=== PATIENT | female | born 1950 | race Caucasian/White ===

== ENCOUNTER → 2019-08-15 | Outpatient (CLI) | payer MEDICARE, OTHER ==
[2019-08-15 10:51] VITALS: BP 175/94; PULSE 75; RESP 18; TEMP 98.3; BMI 21.9
--- NOTE | 2019-08-15 11:12 | P.GSHP ---
History of Present Illness H&P Date: 08/15/19 Chief Complaint: breast mass Dick is a 68-year-old white female who presents for breast examination. She states she noted a lump in her left breast approximately 1 month ago. It is tender to palpation. She has no other masses or lumps in her breasts. She has no history of any infection or trauma in her breast. She had a questionable needle biopsy of one of her breast in the remote past but is unsure which one. She has not had a mammogram for approximately 3 years. The patient drinks 2 cups of caffeinated beverage per morning. She does not smoke and is not exposed to secondhand smoke and eats chocolate only rarely. Family History: 1. patient: melanoma 2. father: skin cancer Hormonal History: menarche: 15 , breast fed: no, age at first 22 menopause: 47 BCP: 8 years hormones: none Surgical history: 1. 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 Parotid resection Medical History: none Social history: Smoking: Negative Alcohol: Negative Drugs: Negative - Constitutional Constitutional: Denies chills, Denies fever - EENT Eyes: denies blurred vision, denies pain Ears: deny: decreased hearing, tinnitus Ears, nose, mouth and throat: Denies headache, Denies sore throat - Breasts Breasts: bilateral: as per HPI - Cardiovascular Cardiovascular: Denies chest pain, Denies shortness of breath - Respiratory Respiratory: Denies cough, Denies 7 - Gastrointestinal Gastrointestinal: Denies abdominal pain, Denies diarrhea, Denies nausea, Denies vomiting - Genitourinary (Female) Genitourinary: Denies dysuria, Denies hematuria - Menstruation Menstruation: Reports postmenopausal - Musculoskeletal Musculoskeletal: Denies myalgias - Integumentary Comment: melanoma right arm - Neurological Neurological: Denies numbness, Denies weakness - Psychiatric Psychiatric: Denies anxiety, Denies depression - Endocrine Endocrine: Denies fatigue, Denies weight change - Hematologic/Lymphatic Comment: none - Allergic/Immunologic Allergic/Immunologic: Reports seasonal allergies Past Medical History History of Any Multi-Drug Resistant Organisms: None Reported Smoking Status: Never smoker Surgical - Exam Vital Signs Temp Pulse Resp BP Pulse Ox 98.3 F 75 18 175/94 100 08/15/19 10:48 08/15/19 10:48 08/15/19 10:48 08/15/19 10:48 08/15/19 10:48 BMI 22 - General well developed, well nourished, no distress - Eyes normal ocular movement - ENT no hearing loss, no congestion - Neck no masses, trachea midline - Respiratory normal respiratory effort, clear to auscultation - Cardiovascular Rhythm: regular Heart Sounds: normal: S1, S2 - Abdomen Abdomen: soft, non tender, no guarding, no rigid, no rebound - Integumentary well healed scar right arm Examination of the integument revealed most likely actinic keratosis over the chest Particular attention to the right arm for melanoma had been removed was paid and no evidence of recurrent melanoma No evidence of lesions of concern over the back - Neurologic no disoriented, no combative - Musculoskeletal normal gait, normal posture - Psychiatric oriented to time, oriented to person, oriented to place, speech is normal, memory intact breast exam: Right breast: Multi-positional exam fibrocystic changes, no dominant masses or nodules of concern Right axilla approximately 1 cm lymph node palpable freely mobile Left breast: Multi-positional exam fibrocystic changes, approximately 1-2 cm firm mass at 1 to 2 o'clock position in periareolar region Left axilla: No adenopathy of concern Assessment and Plan Assessment: Impression: 1. Left breast Mass. 2. Family history of skin cancer 3. Personal history of melanoma 4. Right axillary adenopathy 5. Fibrocystic breast changes 6. Probable actinic keratosis over the chest Plan: 1. Bilateral mammogram 2. Ultrasound of the right axilla/ultrasound of left breast to palpable abnormality 3. Core biopsy of palpable abnormality may be radiographically directed depending on the studies 4. Medical management of medical conditions 5. Strongly recommend a plan with repairer recreational vehicle
--- NOTE | 2019-08-15 13:52 | MM ---
Reason for exam: clinical finding. Last mammogram was performed 3 years and 7 months ago. History: Patient is postmenopausal and has history of other cancer at age 55. Family history of breast cancer in maternal grandmother. Benign core biopsy of the left breast, 2000. Took hormonal contraceptives beginning at age 23. Physical Findings: Breast exam performed by Dr. Thorpe. MG 3D Diag Mammo W/Cad AMBER Bilateral CC and MLO view(s) were taken. Prior study comparison: January 14, 2016, bilateral MG 3d diag mammo w/cad AMBER. January 12, 2015, bilateral MG screening mammo w CAD. The breast tissue is heterogeneously dense. This may lower the sensitivity of mammography. Deep to the palpable marker there is a spiculated mass measuring 6-7mm. Benign appearing bilateral calcifications. Post surgical change in the right axilla. These results were verbally communicated with the patient and result sheet given to the patient on 08/15/19. ASSESSMENT: Incomplete: need additional imaging evaluation, BI-RAD 0 RECOMMENDATION: Ultrasound of the left breast. (palpable)
--- NOTE | 2019-08-15 13:59 | USB ---
Reason for exam: additional evaluation requested from abnormal screening. History: Patient is postmenopausal and has history of other cancer at age 55. Family history of breast cancer in maternal grandmother. Benign core biopsy of the left breast, 2000. Took hormonal contraceptives beginning at age 23. US Breast Limited LT Right breast axilla is negative. Left limited breast ultrasound including focal area of concern, retroareolar and axilla demonstrates a 1.1 x 0.6 x 0.9cm solid, highly suspicious lesion at 1 o'clock for which a biopsy is recommended and a axilla node, no cortical thickening, maintains a fatty hilum. These results were verbally communicated with the patient and result sheet given to the patient on 08/15/19. ASSESSMENT: Highly suggestive of malignancy, BI-RAD 5 RECOMMENDATION: Ultrasound core biopsy of the left breast. Called Dr. Thorpe's office with mammographic findings. Biopsy scheduled for 08/23/19 at 9:30. PRELIMINARY REPORT CALLED AND FAXED TO DR. THORPE ON 08/15/19.
== END ==
LOC: WWCWWP 09:45
PROVIDERS: ATTEND Surgery
DX: N63.20 Unspecified lump in the left breast, unspecified quadrant (principal)
CPT/HCPCS: 77066; 76642 ×2; G0279; 77062

== ENCOUNTER → 2019-08-23 | Day surgery (SDC) | payer MEDICARE, OTHER ==
[2019-08-23 08:56] VITALS: RESP 16; BMI 21.9
[2019-08-23 10:26] VITALS: BP 154/74; PULSE 71; TEMP 98
--- NOTE | 2019-08-23 10:34 | USB ---
EXAMINATION TYPE: US biopsy breast VAD LT, MG diagnostic mammo LT wo CAD DATE OF EXAM: 08/23/2019 CLINICAL HISTORY: R92.8 ABN MAMMO. Abnormal ultrasound. Palpable abnormality. TECHNIQUE: Ultrasound guided core biopsy of left breast with clip placement and follow up mammogram. COMPARISON: Left breast ultrasound and mammogram 8 days ago and older studies. FINDINGS: The procedure of ultrasound guided core biopsy was explained to the patient. Benefits, alternatives, and risks were discussed. An informed consent was then obtained. The patient was placed in supine positioning for imaging and for the procedure. Preprocedure ultrasound redemonstrates 1.2 x 0.7 cm irregular heterogeneous hypoechoic lesion 1:00 position left breast. The overlying skin was prepped and draped in usual sterile fashion. Lidocaine is used as anesthetic into the skin and subcutaneous tissue. Lidocaine with epinephrine is used as anesthetic into the deeper tissue up to area of concern in the left breast. Under ultrasound guidance, a 12-gauge vacuum assisted biopsy gun device was used to obtain 3 core samples. Following this, a biopsy clip was left in lesion. The patient tolerated the procedure well without any immediate complication. The patient was kept in the radiology department for short stay after the procedure and then discharged home in stable condition. Postprocedure mammogram shows successful deployment of clip correlating with area of concern on original 3-D mammograms. IMPRESSION: Successful, uncomplicated ultrasound guided core biopsy of area of concern in the left breast, full pathology results to follow. High index of suspicion noted at time of procedure. Pathology Results: Malignant LEFT BREAST, ULTRASOUND GUIDED CORE BIOPSY: Invasive mammary carcinoma, mixed ductal and lobular patterns, Grade 1 (Erika). See note. Tumor cells positive for Estrogen Receptor (greater than 90% strong nuclear staining by immunohistochemistry). Tumor cells weakly positive for Progesterone Receptor (2-5% focal moderate strong nuclear staining by immunohistochemistry). Tumor cells negative for HER2/Parisa (0+ membrane staining by immunohistochemistry). Tumor cells are strongly positive for pancytokeratin AE1/3 and E-Cadherin. Recommendation Surgical consult of the left breast. MTDD
== END | disposition home or self-care (01) ==
LOC: RADUSWWP 08:29
PROVIDERS: ATTEND Surgery
DX: C50.412 Malignant neoplasm of upper-outer quadrant of left female breast (principal); Z17.0 Estrogen receptor positive status [ER+]
CPT/HCPCS: 77065; 19083; A4648; J2001; 88305

== ENCOUNTER → 2019-09-04 | Outpatient (CLI) | payer MEDICARE, OTHER ==
[2019-09-04 12:43] VITALS: BP 145/87; PULSE 83; RESP 16; TEMP 98.1; BMI 21.9
--- NOTE | 2019-09-04 14:08 | P.PN ---
Subjective Progress Note Date: 09/04/19 Principal diagnosis: [id number]+HER2-G1 Stage 1A left breast cancer Dick is a 69-year-old white female status post left breast ultrasound-guided core biopsy on [id number]. The pathology revealed a grade 1 invasive mammary carcinoma mixed ductal and lobular parents. This is ER/HI positive and HER-2 negative. The patient does not have any complaints after the procedure. Objective - Vital Signs Vital signs: Vital Signs Temp 98.1 F 09/04/19 12:28 Pulse 83 09/04/19 12:28 Resp 16 09/04/19 12:28 BP 145/87 09/04/19 12:28 Pulse Ox 99 09/04/19 12:28 Intake & Output 09/03/19 09/04/19 09/04/19 18:59 06:59 18:59 Weight 58.06 kg - Constitutional General appearance: Present: average body habitus - EENT Eyes: Present: EOMI ENT: Present: hearing grossly normal - Neck Neck: Present: normal ROM - Respiratory Respiratory: bilateral: CTA - Cardiovascular Rhythm: regular Heart sounds: normal: S1, S2 - Integumentary Integumentary Comment(s): Mild ecchymosis left breast upper outer quadrant area biopsy site No evidence of any infection at biopsy site Integumentary: Present: normal turgor - Musculoskeletal Musculoskeletal: Present: gait normal - Psychiatric Psychiatric: Present: A&O x's 3, appropriate affect, intact judgment & insight - Additional findings Additional findings: Left breast, Bra size 36 B breast from prior exam no dominant masses or nodules of concern Grade 2/3 ptosis Lesion left breast nodule upper outer quadrant area approximately one and half centimeters in size Axilla: No adenopathy of concern at this time recent ultrasound of the right axilla was negative nontender 1719 Left axilla: No adenopathy of concern Right breast: No dominant masses or nodules of concern Assessment and Plan Assessment: Impression: 1. Left breast stage IA invasive ductal/lobular carcinoma 2. Radiographic dense breast 3. Patient does not have a primary care doctor at this time we will schedule for preoperative clearance Plan: MRI bilateral breasts secondary to dense breast and questionable lobular component of cancer 2. If MRI does not show multifocal disease with plan on needle localization excisional biopsy sentinel node biopsy possible tissue transfer 3. pre-op clearance I discussed risks and benefits of the surgical procedure which would range from mastectomy plus or minus reconstruction to the onco-plastic lumpectomy. Patient and her and friend understand they also understand sentinel node biopsy possible axillary node dissection. In benefits of the procedures have been discussed with the patient. Risks include bleeding infection reaction to the anesthetic. Risks also include possible positive margin which would necessitate reexcision. Face time 45 minutes explaining risk and benefits and treatment planning.
--- NOTE | 2019-10-01 15:38 | P.PN ---
Subjective Progress Note Date: 10/01/19 Principal diagnosis: [id number]+HER2-G1 Stage 1A left breast cancer She had a bilateral mammogram [id number] Dick is a 69-year-old white female status post left breast ultrasound-guided core biopsy on [id number]. The pathology revealed a grade 1 invasive mammary carcinoma mixed ductal and lobular parents. This is ER/AK positive and HER-2 negative. The patient does not have any complaints after the procedure. She was initially seen after finding a lump in her breast approximately a month earlier. The lump was tender to palpation. She had no other masses or lumps in her breasts. She had no history of infection or trauma to her breast. She had a questionable needle biopsy of one of her breasts in the remote past but was unsure of which one. She underwent a bilateral mammogram and tender 1718. A spiculated mass was identified. Ultrasound was recommended. Left breast ultrasound revealed a 1.1 x 0.9 cm solid highly suspicious lesion. Core biopsy was positive for invasive mammary carcinoma. An MRI was performed on [id number]. The MRI revealed a solitary 1.1 cm left breast mass at the 1 o'clock position. No multifocal cancer was seen. No lesion on the right side was identified. Family history: 1. Patient: Melanoma 2. Father: Skin cancer Hormonal history: Menarche: 15 , press-fit: No, age of first is 22 Menopause: 47 Preoperative control pills: 8 years Hormones: Negative Surgical history: 1. 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 Parotid resection Medical history: Negative Social history: Smoking: Negative Alcohol: Negative Review of systems: Constitutional: Denies chills, denies fever HEENT: Negative Breasts: As per HPI Cardiovascular: Negative Mesentery: Negative GI: Negative : Negative Postmenopausal Musculoskeletal: Negative Integument: Status post melanoma right arm Neurologic: Negative Psychiatric: Negative Objective - Vital Signs Vital signs: Vital Signs Temp 98.1 F 09/04/19 12:28 Pulse 83 09/04/19 12:28 Resp 16 09/04/19 12:28 BP 145/87 09/04/19 12:28 Pulse Ox 99 09/04/19 12:28 - Exam BMI 22 - Constitutional General appearance: Present: no acute distress - EENT Eyes: Present: EOMI ENT: Present: hearing grossly normal - Neck Neck: Present: normal ROM - Respiratory Respiratory: bilateral: CTA - Cardiovascular Rhythm: regular Heart sounds: normal: S1, S2 - Gastrointestinal General gastrointestinal: Present: soft - Integumentary Integumentary Comment(s): Well-healed scar right arm Integumentary: Present: normal turgor - Musculoskeletal Musculoskeletal: Present: gait normal - Psychiatric Psychiatric: Present: A&O x's 3, appropriate affect, intact judgment & insight - Additional findings Additional findings: Breast exam: Right breast: Multi-positional exam fibrocystic changes predominantly mass or nodules of concern Right axilla: Proximal 1 cm lymph node palpable freely mobile Ultrasound of the axilla did not reveal any lesions of concern Left breast: Multi-positional exam fibrocystic changes, approximately 1-2 cm firm mass in 1 to 2 o'clock position in periareolar region Left axilla: No adenopathy of concern Assessment and Plan Assessment: Impression: 1. Left breast stage IA invasive ductal/lobular carcinoma 2. Radiographic dense breast 3. MRI bilateral breasts secondary to dense breast and questionable lobular component of cancer/performed on 09-13-19, findings revealed a solitary 1.1 cm left breast mass at 1:00, no multifocal cancer, no lesion in the right breast Plan: 1. needle localization left breast cancer; lumpectomy sentinel node biopsy; possible axillary dissection, possible tissue transfer I discussed risks and benefits of the surgical procedure of onco-plastic lumpectomy. Patient and her and friend understand they also understand sentinel node biopsy possible axillary node dissection. The risk vs benefits of the procedures have been discussed with the patient. Risks include bleeding infection reaction to the anesthetic. Risks also include possible positive margin which would necessitate reexcision. We also discussed possible mastectomy plus or minus reconstruction and the patient has opted for a lumpectomy.
== END | disposition home or self-care (01) ==
LOC: WWCWWP 12:25
PROVIDERS: ATTEND Surgery
DX: Z53.9 Procedure and treatment not carried out, unspecified reason (principal)

== ENCOUNTER → 2019-09-13 | Outpatient (CLI) | payer MEDICARE, OTHER ==
--- NOTE | 2019-09-13 15:52 | BMR ---
EXAMINATION TYPE: MR breast BILAT wo/w con DATE OF EXAM: 09/13/2019 COMPARISON: Bilateral diagnostic mammogram dated 08/15/2019, left breast ultrasound dated 08/15/2019, and left breast biopsy dated 08/23/2019 HISTORY: malignant neoplasm breast TECHNIQUE: A series of fat and water weighted images in the long and short axis views of both breasts are obtained in conjunction with dynamic contrast MRI with subtraction technique. The patient was i njected with 6 mL intravenous Gadavist gadolinium contrast. Three-dimensional and additional postpr ocessing imaging is created on independent workstation and reviewed during official interpretation of this study. FINDINGS: The breasts are composed of heterogenous fibroglandular tissue and demonstrate mild symmetric backgro und parenchymal enhancement. Corresponding to the biopsy-proven mixed ductal and lobular pattern invasive mammary carcinoma at the 1:00 position in the left breast there is a 1.0 x 1.0 cm mass located approximately 3.7 cm from the nipple. Susceptibility artifact is seen within this mass denoting the biopsy marker. Left axillary ly mph nodes appear morphologically normal. No suspicious internal mammary, intramammary, or axillary ad enopathy seen bilaterally. No suspicious enhancing masses nor nonmass enhancement in the right breast . Scattered subcentimeter probable hepatic cysts are incidentally noted. IMPRESSION: BI-RADS 6. Biopsy-proven left breast carcinoma. There is a solitary 1.1 x 1.1 cm left breast mass at the 1:00 position, 3.7 cm from the nipple containing marker denoting the biopsy carcinoma. No multifo agustín carcinoma nor is lesion on the right.
== END ==
LOC: RADMRIMAIN 06:09
PROVIDERS: ATTEND Surgery
DX: C50.912 Malignant neoplasm of unspecified site of left female breast (principal)
CPT/HCPCS: C8937; C8908; A9585; 77049

== ENCOUNTER 2019-10-02 07:31 | Day surgery (SDC) | payer MEDICARE, OTHER ==
[2019-09-30 12:52] VITALS: BMI 21.2
[~2019-10-02 07:31] MED LIST: DEXAMETHASONE SOD PHOSPHATE 10 MG/ML 1 ML VIAL IV ONE; HEPARIN SODIUM,PORCINE 5,000 UNIT/ML 1 ML VIAL SQ ONE; HYDROmorphone 0.5 MG/0.5 ML SYRINGE IVP PRN; LACTATED RINGERS 1,000 ML IV SCH; LIDOCAINE 1% 20 ML VIAL (10MG/ML) FOR IV START INTRADERMA PRN; MIDAZOLAM 2 MG/2 ML VIAL IV PRN; ONDANSETRON 4 MG/2 ML VIAL IVP ONE; Pre Op ABX Message 1 EACH MISC MISCELLANE ONE; SCOPOLAMINE 1.5MG/72HR PATCH TRANSDERM ONE
[2019-10-02] MEDS ORDERED: ALPRAZolam 0.25 MG TAB PO ONE (08:07)
[2019-10-02] MEDS ORDERED: LIDOCAINE 1% INJ 10MG/ML (20 ML MDV) SQ ONE (08:54)
--- NOTE | 2019-10-02 09:35 | NM ---
EXAMINATION TYPE: NM sentinel node injection DATE OF EXAM: 10/02/2019 COMPARISON: MRI breast dated 09/11/2019 HISTORY: Biopsy-proven left breast cancer TECHNIQUE AND FINDINGS: The procedure of sentinel lymph node injection was explained to the patient. The benefits, alternatives, and risks were discussed. An informed consent was then obtained. Overlying skin is cleaned with sterile alcohol. Following this, 528 uCi Tc99m Tilmanocept was inject ed in the upper outer aspect of the left nipple intradermally. The patient tolerated the procedure well without any immediate complication. The patient was kept in the radiology department for short stay after the procedure and then taken to surgery for surgical p rocedure what is presumed intraoperative gamma probe will be used for sentinel lymph node detection. IMPRESSION: Left breast radiotracer injection for sentinel node localization as above.
[2019-10-02] MEDS ORDERED: LIDOCAINE (PF) 10 MG/ML 2 ML VIAL SQ ONE (09:41)
[2019-10-02] MEDS ORDERED: fentaNYL (PF) 50 MCG/ML 2 ML AMP ONE (09:50)
[2019-10-02] MEDS ORDERED: PHENYLEPHRINE-0.9% NACL SYG 1 MG/10 ML SYRINGE ONE (09:50)
[2019-10-02] MEDS ORDERED: MIDAZOLAM 2 MG/2 ML VIAL ONE (09:50)
[2019-10-02] MEDS ORDERED: PROPOFOL 10 MG/ML 20 ML VIAL IV ONE (09:50)
[2019-10-02] MEDS ORDERED: ONDANSETRON 4 MG/2 ML VIAL ONE (09:50)
[2019-10-02] MEDS ORDERED: LACTATED RINGERS 1,000 ML IV ONE (11:49)
--- NOTE | 2019-10-02 12:45 | MM ---
EXAMINATION TYPE: MG pre op needle loc LT, MG surgical specimen LT DATE OF EXAM: 10/02/2019 COMPARISON: MRI of the breasts dated 09/03/2019 CLINICAL HISTORY: Biopsy-proven left breast carcinoma TECHNIQUE: Needle localization with wire placement and surgical excision of area of concern in the left breast. FINDINGS: The procedure of needle localization with wire placement and than surgical excision was explained to the patient. Benefits, alternatives, and risks were discussed. An informed consent was then obtained. Preprocedural timeout was performed. The shortest pathway for procedure was chosen. Shortest pathway was lateral to medial approach. The overlying skin was prepped and draped in usual sterile fashion. Lidocaine buffered with bicarbonate was used as anesthetic into the skin and subcutaneous tissue up to the level of area of concern. A 5 cm needle was used. It was placed via a lateral to medial approach under mammographic guidance. Subsequent 90 degrees mammogram show the needle to be in satisfactory position relative to the targeted area. At this point, wire was placed and the needle was withdrawn. The wire was fixed to patient's skin. Images were marked for surgeon. The patient tolerated the procedure well without any immediate complication. The patient was kept in the radiology department for short stay after the procedure and then taken to surgery for surgical excision. Targeted biopsy marker and wire are identified in specimen mammogram. The patient was kept in hospital for short stay after the procedure and then discharged home in stable condition. IMPRESSION: Successful, uncomplicated needle localization with wire placement and surgical excision of a targeted biopsy marker denoting biopsy-proven left breast carcinoma (invasive ductal with mixed features and lobular pattern) in the left breast, full pathology results to follow. Pathology Results: Malignant A. LEFT BREAST SENTINEL LYMPH NODE, BIOPSY: One lymph node negative for metastatic adenocarcinoma as seen on H+E as well as appropriately controlled immunohistochemical studies for VIDA and cytokeratin 7. B. ADDITIONAL AXILLARY TISSUE, EXCISION: Two lymph nodes negative for metastatic adenocarcinoma. C. NEW EXTERNAL MARGIN, LATERAL EDGE, EXCISION: Negative for adenocarcinoma, mineralizations are identified in benign dense breast parenchyma. D. DE-EPITHELIALIZED SKIN, EXCISION: Unremarkable skin, negative for carcinoma. E. LEFT BREAST, LUMPECTOMY: Invasive mammary carcinoma, [place] Grade 2 with areas consistent with infiltrating lobular pattern measuring 9 x 9 x 8 mm in greatest dimension, completely excised extending to within 2.5 mm of the blue/ black inked, superior anterior margin of resection. Tumor is also approximately 2.5 mm away from the posterior purple inked margin of resection. See note. Recommendation Surgical consult of the left breast. Continued surgical management. MTDD
--- NOTE | 2019-10-02 13:29 | P.OP ---
Date of Procedure: 10/02/19 Preoperative Diagnosis: Left breast cancer Postoperative Diagnosis: Same Procedure(s) Performed: pre-operative marking the patient for procedure. [place] node biopsy, lumpectomy via donut mastopexy, tissue rearrangement The patient was evaluated in the preoperative holding area. She was noted to have a grade 3 ptosis bilaeral. It was discussed with the patient that following the procedure she would have asymmetry of the breasts. Skin markings were placed to denote the meridian of the breast and the new location of the nipple areolar complex. A circumferential marking was placed around the nipple areola complex with an eccentric twin hills placed distal to this. Contralateral symmetry procedure is delayed until after the patient receives radiation therapy and this will be matched to the final appearance of the left breast. Anesthesia: JUAN R Surgeon: Luisa Thorpe Estimated Blood Loss (ml): 20 IV fluids (ml): 1,000 Pathology: other ([place] lymph node, breast tissue) Condition: stable Disposition: same day Indications for Procedure: Biopsy-proven left breast cancer Operative Findings: Ptotic breast, palpable left breast mass Description of Procedure: The patient was evaluated in the preoperative holding area. Preoperatively she underwent needle localization of the area of concern in the left breast. She additionally had injection of lymphatic kindly sentinel node biopsy. She was noted to have a grade 3 ptosis bilaeral. It was discussed with the patient that following the procedure she would have asymmetry of the breasts. Skin markings were placed to denote the meridian of the breast and the new location of the nipple areolar complex. A circumferential marking was placed around the nipple areola complex with an eccentric twin hills placed distal to this. Contralateral symmetry procedure is delayed until after the patient receives radiation therapy and this will be matched to the final appearance of the left breast. The patient was brought to the operating room and following induction of general anesthesia the neoprobe was used to interrogate the axilla. An area of increased radioactivity was identified and therefore methylene blue was not injected. The breast and the left axilla and upper arm were prepped and draped in a sterile fashion. The axilla was approached initially. Using the neoprobe the area of greatest radioactivity was identified. An incision was made in this area. A palpable lymph node was identified which was excised. This was not radioactive. Radioactivity was noted to be deep within the axilla. One of the intercostal brachial vessels was ligated and divided to reach the no. The node was grasped using an Allis clamp. Using the Harmonic scalpel this area was resected. A 10 second count on the node was performed which is approximately 1400. The background 10 second count was noted to be 4. The axilla was evaluated for hemostasis. We were assured this was attained the wound was well irrigated. The deep tissues were closed using 3-0 Vicryl suture. The skin was closed using 4-0 Monocryl. The patient tolerated this portion of the procedure in stable condition. The specimen was not felt to be clinically suspicious and it was sent for permanent section evaluation. The area of the breast was then approached. The periareolar area was marked using a 42 cm Saqina cutter. An eccentric twin hills was placed outside this area using a measuring device. The distance was approximately 2-1/2 cm at the 12 o'clock position. This marked the boundary of the new areolar complex. An incision was made and the skin was scored. A second incision was made around the nipple areolar complex in an eccentric fashion. The skin within donut was de-epithelialized. A curvilinear incision was made in the de-epithelialized stone adjacent to the planned partial mastectomy. Dissection was then performed in the subcutaneous/anterior mammary fascial plane towards the cancer. Circumferential dissection around the targeted lesion was performed. Posteriorly dissection was carried down to the pectoralis major muscle. The specimen was removed and painted for orientation. Specimen radiograph confirmed the targeted lesion was completely removed. The lateral margin appeared to be close. Additional lateral tissue was obtained and the external surface was painted for orientation. The wound was irrigated. Hemostasis was secured. Titanium clips were placed to [place] the tumor bed. Dissection was performed at the deep layer of the breast along the pectoralis major muscle. Approximately 32 square centimeters of tissue was dissected along the superior plane, and 24 cm of tissue was dissected along the inferior plane to mobilize the glandular breast tissue to allow for repair of the defect from the partial mastectomy. This was a total of 56 square cm of tissue mobilized. The defect was then closed in a [id number] fashion. This allowed for reshaping of the breast mound to repair the defect. The skin was then closed using a 5-0 [place] isela wagon wheel suture. This reapproximated the inner and outer circular incisions at the nipple areolar complex. The nipple area complex was then reapproximated using interrupted 4-0 Monocryl. The skin was closed using a 5-0 nylon suture. All instrument and sponge counts were correct at the end of the case. The patient tolerated the procedure in stable condition.
--- NOTE | 2019-10-02 13:34 | P.DS ---
Providers Attending physician: Luisa Thorpe Primary care physician: Temo Felix Plan - Discharge Summary Discharge Rx Participant: No New Discharge Prescriptions: No Action No Known Home Medications Discharge Medication List No Known Home Medications 08/15/19 [History] Follow up Appointment(s)/Referral(s): Luisa Thorpe MD [STAFF PHYSICIAN] - 1 Week Activity/Diet/Wound Care/Special Instructions: Do not drive until seen by Dr. Juares Keep Nishant wrap on at all times Patient may shower after 48 hours Discharge Disposition: HOME SELF-CARE
--- NOTE | 2019-10-02 13:35 | P.NAPBC ---
NAPBC Queries - NAPBC Queries Was patient's case review presented at [facility] tumor board? If no, comment.: Yes Was patient's pathology reviewed at [facility]? If no, comment.: Yes Was breast conservation surgery offered? If no, comment.: Yes Was sentinel node biopsy offered? If no, comment.: Yes Was diagnosis confirmed by percutaneous core biopsy? If no, comment.: Yes Is patient mastectomy patient?: No Was a preop referral to reconstructive surgeon offered?: Yes Clinical Stage: Stage IA [id number] ER/PA+ Her2-
[2019-10-02 13:44] VITALS: TEMP 97.6
[2019-10-02 13:49] VITALS: RESP 16
[2019-10-02] MEDS ORDERED: HYDROcodone/APAP 5-325MG 1 EACH TAB PO ONE (14:44)
[2019-10-02] MEDS ORDERED: METOPROLOL TARTRATE 5 MG/5 ML VIAL IVP ONE (16:47)
[2019-10-02 17:11] VITALS: PULSE 61
[2019-10-02 17:16] VITALS: BP 166/78
== END 2019-10-02 17:44 | disposition home or self-care (01) ==
LOC: OR 07:31
PROVIDERS: ATTEND Surgery
DX: C50.412 Malignant neoplasm of upper-outer quadrant of left female breast (principal); Z17.0 Estrogen receptor positive status [ER+]; R42 Dizziness and giddiness; Z91.040 Latex allergy status; Z88.5 Allergy status to narcotic agent; Z91.048 Other nonmedicinal substance allergy status; Z85.820 Personal history of malignant melanoma of skin; Z98.890 Other specified postprocedural states; Z82.49 Family history of ischemic heart disease and other diseases of the circulatory system
CPT/HCPCS: 19301; 38525; 93005; 88305; 88342; 88307; 88341; 76098; 19281; 38792; A9520; J2250; J1644; J1100; J2405; J2001; J3010; J2370; J2704; J1170

== ENCOUNTER → 2019-10-11 | Outpatient (CLI) | payer MEDICARE, OTHER ==
[2019-10-11 15:25] VITALS: BP 164/105; PULSE 95; RESP 18; TEMP 97.9
--- NOTE | 2019-10-11 15:45 | P.PN ---
Subjective Progress Note Date: 10/11/19 Principal diagnosis: Stage IA [id number]- left breast cancer Patient is a 69 year old white female status post left breast lumpectomy and SNB on 10-02-19. 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 The margins were negative. The patient is complaining of some pain under her left arm. She states this has decreased since the surgery. Objective - Vital Signs Vital signs: Vital Signs Temp 97.9 F 10/11/19 15:19 Pulse 95 10/11/19 15:19 Resp 18 10/11/19 15:19 BP 164/105 10/11/19 15:19 Pulse Ox 98 10/11/19 15:19 Intake & Output 10/10/19 10/11/19 10/11/19 18:59 06:59 18:59 Weight 54.885 kg - Exam BMI 20.8 - Constitutional General appearance: Present: average body habitus - EENT Eyes: Present: EOMI ENT: Present: hearing grossly normal - Neck Neck: Present: normal ROM - Respiratory Respiratory: bilateral: CTA - Cardiovascular Rhythm: regular Heart sounds: normal: S1, S2 - Gastrointestinal General gastrointestinal: Present: normal bowel sounds, soft - Integumentary Integumentary: Present: normal turgor - Musculoskeletal Musculoskeletal: Present: gait normal - Psychiatric Psychiatric: Present: A&O x's 3, appropriate affect, intact judgment & insight - Additional findings Additional findings: left breast: Incision clean and dry sutures removed Axillary incision clean and dry no evidence of any infection Assessment and Plan Assessment: Impression: 1. stage IA left breast margins negative 2. patient doing well Plan: 1. appointment medical oncology 2. appointment radiation oncology 3. follow up here in three months CC: DR. Felix Time with Patient: Less than 30
== END ==
LOC: WWCWWP 15:13
PROVIDERS: ATTEND Surgery
DX: Z53.9 Procedure and treatment not carried out, unspecified reason (principal)

== ENCOUNTER → 2020-04-09 | Outpatient (CLI) | payer MEDICARE, OTHER ==
[2020-04-09 14:58] VITALS: BP 156/78; PULSE 62; RESP 14; TEMP 98.2
--- NOTE | 2020-04-09 15:30 | P.PN ---
Subjective Progress Note Date: 04/09/20 Principal diagnosis: [id number]; Stage IB let breast cancer Stage IA left breast cancer Dick is a 69-year-old white female status post left breast lumpectomy and sentinel node biopsy on . 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 The margins were negative. The patient does have some intermittent left breast sharp pain which occurs laterally and spreads to the nipple. She does not know what causes this to happen. It is occurring less frequently. She had radiation therapy in [place]. She is starting on anastrozole. The patient does have some asymmetry of the breasts. The right nipple has grade 3 ptosis of the left nipple is She has grade 3 right breast ptosis; in the left breast there is scar tissue with some deviation of the nipple laterally. The patient has anxiety about this secondary to the asymmetry dofference in the and level of the nipples, and complains of difficulty finding clothes to fit correctly. Family History: 1. patient: melanoma 2. father: skin cancer Hormonal History: menarche: 15 , breast fed: no, age at first 22 menopause: 47 BCP: 8 years hormones: none Surgical history: 1. 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 Parotid resection 3. left breast lumpectomy and SNB Medical History: HTN Social history: Smoking: Negative Alcohol: Negative Drugs: Negative - Constitutional Constitutional: Denies chills, Denies fever - EENT Eyes: denies blurred vision, denies pain Ears: deny: decreased hearing, tinnitus Ears, nose, mouth and throat: Denies headache, Denies sore throat - Breasts Breasts: bilateral: as per HPI - Cardiovascular Cardiovascular: Denies chest pain, Denies shortness of breath - Respiratory Respiratory: Denies cough - Gastrointestinal Gastrointestinal: Denies abdominal pain, Denies diarrhea, Denies nausea, Denies vomiting - Genitourinary (Female) Genitourinary: Denies dysuria, Denies hematuria - Menstruation Menstruation: Reports postmenopausal - Musculoskeletal Musculoskeletal: Denies myalgias - Integumentary Comment: melanoma right arm - Neurological Neurological: Denies numbness, Denies weakness - Psychiatric Psychiatric: Denies anxiety, Denies depression - Endocrine Endocrine: Denies fatigue, Denies weight change - Hematologic/Lymphatic Comment: none - Allergic/Immunologic Allergic/Immunologic: Reports seasonal allergies Past Medical History History of Any Multi-Drug Resistant Organisms: None Reported Smoking Status: Never smoke Objective - Vital Signs Vital signs: Intake & Output 04/08/20 04/09/20 04/09/20 18:59 06:59 18:59 Weight 58.06 kg - Exam BMI 22 - Constitutional General appearance: Present: average body habitus - EENT Eyes: Present: EOMI ENT: Present: hearing grossly normal - Neck Neck: Present: normal ROM - Respiratory Respiratory: bilateral: CTA - Cardiovascular Rhythm: regular Heart sounds: normal: S1, S2 - Gastrointestinal General gastrointestinal: Present: normal bowel sounds, soft - Integumentary Integumentary: Present: normal turgor - Musculoskeletal Musculoskeletal: Present: gait normal - Psychiatric Psychiatric: Present: A&O x's 3, appropriate affect, intact judgment & insight - Additional findings Additional findings: breast exam: BRA 34B inspection: nipple ptosis grade 3 right, left breast nipple deviated to the left Right nipple is approximately 3 cm below the left nipple palpation: right breast: multipositional exm no dominate masses of concern right axilla: no adenopathy of concern left breast: multipositional exam, scar well healed, post op and radiation changes left axilla: no adenopathy of concern Assessment and Plan Assessment: Impression: 1. left breast Stage 1B cancer, status post lumpectomy and radiation, no recurrence 2. asymmetry of breast resulting in anxiety and difficulty with clothes filling, she states " you look abnormal" 3. HTN 4. Bilateral 3-D mammogram was last done in July 2019, no lesions of concern were noted in the right breast Plan: 1. right breast mastopexy 2. continued surveillance related to breast cancer 3. finished radiation February 04 of the left breast, will recommend mammogram in 6 months for the left breast 4. medical managment of HTN Preoperative discussion regarding the asymmetry of the breast. We have talked about the option of a mastopexy with equalizing the level of the nipples. The left nipple does deviate laterally and the objective would be that the right nipple would be at the same level but would not change the deviation. The size of the breast are the right slightly larger than the left however she is not concerned about this as much as the asymmetry of the nipple position and is not interested in a reduction on the right. Therefore we will plan to do a crescent mastopexy with raising of the right nipple areolar complex. She understands the risks and benefits and wishes to proceed. She's been given the option of seeing a plastic surgeon but would prefer to just have the procedure done here. CC: Dr. Keller encounter 30 minutes, > 50% of time spent in planning and counselling
== END | disposition home or self-care (01) ==
LOC: WWCWWP 14:37
PROVIDERS: ATTEND Surgery
DX: Z53.9 Procedure and treatment not carried out, unspecified reason (principal)

== ENCOUNTER 2020-06-02 07:18 | Day surgery (SDC) | payer MEDICARE, OTHER ==
[2020-05-27 09:56] VITALS: BMI 21.8
--- NOTE | 2020-05-29 12:38 | P.PN ---
Subjective Progress Note Date: 05/29/20 Principal diagnosis: Asymmetry of the nipple areolar complex secondary to cancer surgery [id number]-G1; Stage IB left breast cancer Stage IA left breast cancer Dick is a 69-year-old white female status post left breast lumpectomy and sentinel node biopsy on . 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 The margins were negative. The patient does have some intermittent left breast sharp pain which occurs laterally and spreads to the nipple. She does not know what causes this to happen. It is occurring less frequently. She had radiation therapy in [place]. She is starting on anastrozole. The patient does have some asymmetry of the nipple areolar complex. She has grade 3 right breast ptosis; in the left breast there is scar tissue with some deviation of the nipple laterally. The patient has anxiety about this secondary to the asymmetry difference in the level of the nipples, and complains of difficulty finding clothes to fit correctly. Family History: 1. patient: melanoma 2. father: skin cancer Hormonal History: menarche: 15 , breast fed: no, age at first 22 menopause: 47 BCP: 8 years hormones: none Surgical history: 1. 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 Parotid resection 3. left breast lumpectomy and SNB Medical History: HTN Social history: Smoking: Negative Alcohol: Negative Drugs: Negative - Constitutional Constitutional: Denies chills, Denies fever - EENT Eyes: denies blurred vision, denies pain Ears: deny: decreased hearing, tinnitus Ears, nose, mouth and throat: Denies headache, Denies sore throat - Breasts Breasts: bilateral: as per HPI - Cardiovascular Cardiovascular: Denies chest pain, Denies shortness of breath - Respiratory Respiratory: Denies cough - Gastrointestinal Gastrointestinal: Denies abdominal pain, Denies diarrhea, Denies nausea, Denies vomiting - Genitourinary (Female) Genitourinary: Denies dysuria, Denies hematuria - Menstruation Menstruation: Reports postmenopausal - Musculoskeletal Musculoskeletal: Denies myalgias - Integumentary Comment: melanoma right arm - Neurological Neurological: Denies numbness, Denies weakness - Psychiatric Psychiatric: Denies anxiety, Denies depression - Endocrine Endocrine: Denies fatigue, Denies weight change - Hematologic/Lymphatic Comment: none - Allergic/Immunologic Allergic/Immunologic: Reports seasonal allergies Objective - Exam BMI 21.8 - Constitutional General appearance: Present: average body habitus - EENT Eyes: Present: EOMI ENT: Present: hearing grossly normal - Neck Neck: Present: normal ROM - Respiratory Respiratory: bilateral: CTA - Cardiovascular Rhythm: regular Heart sounds: normal: S1, S2 - Gastrointestinal General gastrointestinal: Present: soft - Integumentary Integumentary: Present: normal turgor - Musculoskeletal Musculoskeletal: Present: gait normal - Psychiatric Psychiatric: Present: A&O x's 3, appropriate affect, intact judgment & insight - Additional findings Additional findings: breast exam: Breasts size 34B Inspection: right left breast needle nipple deviated to the left retina right nipple was approximately 3 cm below the left nipple Palpation: Right breast: Multi-positional exam no dominant masses or nodules of concern Right axilla: No adenopathy of concern Left breast: Multiple positional exam scar well-healed, postoperative radiation changes Left axilla: No adenopathy of concern Assessment and Plan Assessment: Impression: 1. Left breast stage IB cancer, status post lumpectomy and radiation no recurrence 2. Asymmetry of the nipple areolar complex resulting in anxiety and difficulty with close femoral team. She states "you look abnormal 3. Hypertension 4. Bilateral 3-D mammogram last on July 2019 no lesions of concern noted in the right breast Plan: 1. Right breast mastopexy 2. Continue surveillance related to breast cancer 3. Finish radiation of the left breast February 04, recommended mammogram in 6 months from then for the left breast 4. Medical management of hypertension Preoperative discussion regarding asymmetry of the breast was had. We have talked about the option of a mastopexy with equalizing the level of the nipples. The left nipple does deviate laterally and the objective would be that the right nipple would be at the same level. Would not change the deviation. The size of the breast as the right slightly larger than the left however she's not concerned about this as much as the asymmetric nipple position. She is not interested in a reduction on the right. We'll plan to do a crescent mastopexy with placement of the right nipple areolar complex. She understands the risks and benefits and wishes to proceed. Stent given the option of seeing a plastic surgeon but has declined. CC: Dr. Felix
[~2020-06-02 07:18] MED LIST changes: -HYDROmorphone 0.5 MG/0.5 ML SYRINGE IVP PRN; -LIDOCAINE 1% 20 ML VIAL (10MG/ML) FOR IV START INTRADERMA PRN; -SCOPOLAMINE 1.5MG/72HR PATCH TRANSDERM ONE
[2020-06-02] MEDS ORDERED: ONDANSETRON 4 MG/2 ML VIAL ONE (08:03)
[2020-06-02] MEDS ORDERED: HEPARIN SODIUM,PORCINE 5,000 UNIT/ML 1 ML VIAL ONE (08:03)
[2020-06-02] MEDS ORDERED: PROPOFOL 10 MG/ML 20 ML VIAL IV ONE (08:37)
[2020-06-02] MEDS ORDERED: MIDAZOLAM 2 MG/2 ML VIAL ONE (08:37)
[2020-06-02] MEDS ORDERED: fentaNYL (PF) 50 MCG/ML 2 ML AMP ONE (08:37)
[2020-06-02] MEDS ORDERED: LIDOCAINE 1% INJ 10MG/ML (20 ML MDV) ONE (08:37)
[2020-06-02] MEDS ORDERED: LIDOCAINE 1% INJ 10MG/ML (20 ML MDV) SQ ONE ×2 (09:22→09:36)
--- NOTE | 2020-06-02 09:50 | P.OP ---
Date of Procedure: 06/02/20 Preoperative Diagnosis: asymetry of the breast nipple areolar complex related to left breast lumpectomy for cancer Postoperative Diagnosis: Same Procedure(s) Performed: [place] mastopexy Anesthesia: JUAN R Surgeon: Luisa Thorpe Estimated Blood Loss (ml): 5 IV fluids (ml): 300 Pathology: other (De-epithelialized skin) Condition: stable Disposition: same day Indications for Procedure: asymmetric location of the nipple areolar complex related to left breast lumpectomy for cancer Operative Findings: asymmetric nipple areolar complex location Description of Procedure: Dick is a 69-year-old white female who underwent a left breast lumpectomy and radiation therapy for left breast invasive ductal carcinoma. She subsequently had asymmetry of the location of the nipple areolar complex. Ptosis on the right was a grade 2/3 and on the left was a grade 1. Additionally the location of the nipple areolar complex was approximately 2-1/2 cm higher on the left than on the right. After discussion with the patient and she wished to have a mastopexy performed. We discussed a reduction on the right and she did not want to have a reduction. Additionally she was given the option of seeing a plastic surgeon and declined. Risks and benefits of the procedure were discussed with the patient and she wished to proceed. In the preoperative area the patient was marked in the standing position for a crescent mastopexy. The location of the superior aspect of the areolar complex on the left was approximately 2-1/2 cm above the superior areolar location on the right. The location of the superior aspect of the areolar on the left was approximately 23 cm from the sternal notch to the meridian line. This was matched to the superior aspect of the areolar complex on the right at the meridian line to approximately 20 cm which was 2-1/2 cm higher than the present location of the areolar complex. After the crescent had been marked the patient was taken to the operative s uite. Following induction of anesthesia the right and left breast were prepped and draped in a sterile fashion. The skin of the crescent was de- epithelialized. Following this the nipple areolar complex was elevated using a Vicryl suture to close the defect. Interrupted 3-0 Vicryl sutures were placed. This was followed by running 3-0 Vicryl suture. Following this a 4 Monocryl running suture was placed in the subcuticular layer. This was followed by a running nylon suture. The patient tolerated the procedure in stable condition. All instrument and sponge counts were correct at the end of the case.
--- NOTE | 2020-06-02 09:53 | P.DS ---
Providers Attending physician: Luisa Thorpe Primary care physician: Temo Felix Plan - Discharge Summary Discharge Rx Participant: No New Discharge Prescriptions: No Action Anastrozole [Arimidex] 1 mg PO QAM amLODIPine BESYLATE [Norvasc] 2.5 mg PO QAM Cholecalciferol [Vitamin D3 (25 Mcg = 1000 Iu)] 5,000 unit PO DAILY Calcium 420 mg PO BID Discharge Medication List Anastrozole [Arimidex] 1 mg PO QAM 04/09/20 [History] amLODIPine BESYLATE [Norvasc] 2.5 mg PO QAM 04/09/20 [History] Calcium 420 mg PO BID 05/27/20 [History] Cholecalciferol [Vitamin D3 (25 Mcg = 1000 Iu)] 5,000 unit PO DAILY 05/27/20 [History] Follow up Appointment(s)/Referral(s): Luisa Thorpe MD [STAFF PHYSICIAN] - 1 Week Activity/Diet/Wound Care/Special Instructions: do not drive for 24 hours after discharge Discharge Disposition: HOME SELF-CARE
[2020-06-02 10:03] VITALS: TEMP 98.4
[2020-06-02] MEDS: fentaNYL (PF) 50 MCG/ML 2 ML AMP IV PRN ×2 (10:14→10:20)
[2020-06-02] MEDS ORDERED: HYDROcodone/APAP 5-325MG 1 EACH TAB ONE (11:16)
[2020-06-02] MEDS ORDERED: HYDROcodone/APAP 5-325MG 1 EACH TAB PO ONE (11:17)
[2020-06-02 12:00] VITALS: BP 157/84; PULSE 62; RESP 18
== END 2020-06-02 12:24 | disposition home or self-care (01) ==
LOC: OR 07:18
PROVIDERS: ATTEND Surgery
DX: N65.1 Disproportion of reconstructed breast (principal); N60.31 Fibrosclerosis of right breast; I10 Essential (primary) hypertension; Z85.3 Personal history of malignant neoplasm of breast; Z92.3 Personal history of irradiation; Z88.5 Allergy status to narcotic agent; Z91.040 Latex allergy status; Z91.048 Other nonmedicinal substance allergy status; Z79.899 Other long term (current) drug therapy; Z79.811 Long term (current) use of aromatase inhibitors; Z85.820 Personal history of malignant melanoma of skin; Z98.890 Other specified postprocedural states; Z80.8 Family history of malignant neoplasm of other organs or systems
CPT/HCPCS: 88305; 19316; J2250; J1644; J1100; J2405; J2001; J3010; J2704

== ENCOUNTER → 2020-06-05 | Outpatient (CLI) | payer MEDICARE, OTHER ==
--- NOTE | 2020-06-05 11:08 | P.PN ---
Progress Note - Text Progress Note Date: 06/05/20 Dick is a 69 -year-old white female status post right breast crescent mastopexy [id number]. Pathology revealed benign skin. Patient is doing well with no complaints. Physical exam: Right breast: Incision clean and dry mild ecchymosis Lungs: Clear Heart: Regular rate and rhythm Impression/ Plan: Patient has symmetry between the location of the nipple areolar complex at this time. She is pleased with the results. Suture removal in 1 week CC: DR. Felix
[2020-06-05 12:21] VITALS: BP 169/82; PULSE 57; RESP 18; TEMP 98
== END | disposition home or self-care (01) ==
LOC: WWCWWP 10:55
PROVIDERS: ATTEND Surgery
DX: Z53.9 Procedure and treatment not carried out, unspecified reason (principal)

== ENCOUNTER → 2020-06-17 | Outpatient (CLI) | payer MEDICARE, OTHER ==
[2020-06-17 12:29] VITALS: BP 153/78; PULSE 67; RESP 16; TEMP 98
--- NOTE | 2020-06-17 12:36 | P.PN ---
Progress Note - Text Progress Note Date: 06/17/20 Dick is a 69 -year-old white female status post left breast lumpectomy and sentinel node biopsy in . This was for a 9 mm invasive ductal carcinoma with some features of infiltrating lobular carcinoma. The margins were negative. The patient then underwent a symmetry procedure on the right breast on 8419. She has no complaints related to the procedure. She does state she has some mild discomfort in the left lumpectomy site in the axillary area. She will be due for a bilateral mammogram in July 2020. Physical Exam: Lungs: Clear Heart: Regular rate and rhythm Right breast incision clean and dry ready for suture removal Left breast: Scar tissue at lumpectomy site no dominant masses or nodules of concern otherwise, no axillary adenopathy of concern Impression/plan: 1. Patient postop crescent mastopexy right breast on 8419. This is healing well without difficulty and sutures to be removed 2. Patient status post left breast lumpectomy sentinel node biopsy for stage I a left breast cancer 3. Patient will be due for bilateral mammogram in July 2020 and appointment at that time 4. Patient did call if she has any questions sooner CC: Dr. Felix
== END | disposition home or self-care (01) ==
LOC: WWCWWP 12:10
PROVIDERS: ATTEND Surgery
DX: Z53.9 Procedure and treatment not carried out, unspecified reason (principal)

== ENCOUNTER → 2020-07-17 | Outpatient (CLI) | payer MEDICARE, OTHER ==
[2020-07-17 12:51] VITALS: BP 133/78; PULSE 75; RESP 16; TEMP 98.5
--- NOTE | 2020-07-17 13:03 | P.PN ---
Subjective Progress Note Date: 07/17/20 Principal diagnosis: Erythema of incision site right breast Stage IA left breast cancer Dick is a 69-year-old white female status post left breast lumpectomy and sentinel node biopsy on . 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 The margins were negative. The patient does have some intermittent left breast sharp pain which occurs laterally and spreads to the nipple, this has improved. She does not know what causes this to happen. It is occurring less frequently. She had radiation therapy in [place]. She is on anastrozole, and doing well with this. The patient did have some asymmetry of the breasts. The right nipple has grade 3 ptosis. She underwent a crescent mastopexy of the right breast on a 420. She has done well with no complications. She states yesterday she noted that the incision site looks slightly red she is not complaining of any fever or chills. She has not had any recent trauma to the breast. She has not had any infection in any place. Family History: 1. patient: melanoma 2. father: skin cancer Hormonal History: menarche: 15 , breast fed: no, age at first 22 menopause: 47 BCP: 8 years hormones: none Surgical history: 1. 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 Parotid resection 3. left breast lumpectomy and SNB Medical History: HTN Social history: Smoking: Negative Alcohol: Negative Drugs: Negative Objective - Vital Signs Vital signs: Vital Signs Temp 98.5 F 07/17/20 12:48 Pulse 75 07/17/20 12:48 Resp 16 07/17/20 12:48 BP 133/78 07/17/20 12:48 Pulse Ox 98 07/17/20 12:48 Intake & Output 07/16/20 07/17/20 07/17/20 18:59 06:59 18:59 Weight 58.06 kg - Exam BMI 22 - Constitutional General appearance: Present: average body habitus - EENT Eyes: Present: EOMI ENT: Present: hearing grossly normal - Neck Neck: Present: normal ROM - Respiratory Respiratory: bilateral: CTA - Cardiovascular Rhythm: regular Heart sounds: normal: S1, S2 - Integumentary Integumentary Comment(s): Incision site right mastopexy with some erythema No evidence of abscess No evidence of stitch extruding - Musculoskeletal Musculoskeletal: Present: gait normal - Psychiatric Psychiatric: Present: A&O x's 3, appropriate affect, intact judgment & insight Assessment and Plan Assessment: Impression: 1. Erythema at incision site right mastopexy 2. Left breast stage 1A status post lumpectomy and sentinel node biopsy on 3. Patient has a bilateral mammogram in July 2020 and appointment at that time Plan: 1. One week of Keflex 2. If area gets worse she should call us 3. Follow-up bilateral mammogram July 2020 4.follow up in one week CC: DR. Felix encounter 15 minutes, > 50% of time in planning and counselling
== END | disposition home or self-care (01) ==
LOC: WWCWWP 12:19
PROVIDERS: ATTEND Surgery
DX: Z53.9 Procedure and treatment not carried out, unspecified reason (principal)

== ENCOUNTER → 2020-09-15 | Outpatient (CLI) | payer MEDICARE, OTHER ==
--- NOTE | 2020-09-15 12:00 | MM ---
Reason for exam: additional evaluation requested from prior study. Last mammogram was performed 1 year and 1 month ago. History: Patient is postmenopausal, has history of breast cancer at age 69, and has history of other cancer at age 55. Family history of breast cancer in maternal grandmother and breast cancer in mother. Malignant MG pre op needle loc LT of the left breast, October 02, 2019. Lumpectomy of the left breast, October 02, 2019. Malignant US biopsy breast VAD LT of the left breast, August 23, 2019. Benign core biopsy of the left breast, 2000. Took hormonal contraceptives beginning at age 23. Taking antineoplastic beginning at age 69. Physical Findings: Nurse did not find any significant physical abnormalities on exam. MG 3D Diag Mammo W/Cad AMBER Bilateral CC and MLO view(s) were taken. Prior study comparison: August 23, 2019, left breast MG diagnostic mammo LT wo CAD. August 15, 2019, bilateral MG 3d diag mammo w/cad AMBER. The breast tissue is heterogeneously dense. This may lower the sensitivity of mammography. Finding: There is a new 3 mm circumscribed round mass located 4 cm from the nipple in the 4-5 o'clock middle position of the right breast. Bilaterally axillary dissection clips. New finding since August 23, 2019 and August 15, 2019. These results were verbally communicated with the patient and result sheet given to the patient on 09/15/20. ASSESSMENT: Incomplete: need additional imaging evaluation, BI-RAD 0 RECOMMENDATION: Ultrasound of the right breast.
--- NOTE | 2020-09-15 12:01 | USB ---
Reason for exam: additional evaluation requested from abnormal screening. History: Patient is postmenopausal, has history of breast cancer at age 69, and has history of other cancer at age 55. Family history of breast cancer in maternal grandmother and breast cancer in mother. Malignant MG pre op needle loc LT of the left breast, October 02, 2019. Lumpectomy of the left breast, October 02, 2019. Malignant US biopsy breast VAD LT of the left breast, August 23, 2019. Benign core biopsy of the left breast, 2000. Took hormonal contraceptives beginning at age 23. Taking antineoplastic beginning at age 69. US Breast Limited RT Right limited breast ultrasound including focal area of concern, retroareolar and axilla demonstrates a 3 x 3 x 3mm oval, cystic lesion at 4 o'clock. These results were verbally communicated with the patient and result sheet given to the patient on 09/15/20. ASSESSMENT: Benign, BI-RAD 2 RECOMMENDATION: Routine screening mammogram of both breasts in 1 year.
== END | disposition home or self-care (01) ==
LOC: RADMAMWWP 10:50
PROVIDERS: ATTEND Surgery
DX: R92.8 Other abnormal and inconclusive findings on diagnostic imaging of breast (principal); Z85.3 Personal history of malignant neoplasm of breast
CPT/HCPCS: 77066; 76642; G0279; 77062

== ENCOUNTER → 2020-09-18 | Outpatient (CLI) | payer MEDICARE, OTHER ==
[2020-09-18 11:11] VITALS: BP 151/83; PULSE 75; RESP 18; TEMP 98.4
--- NOTE | 2020-09-18 11:38 | P.PN ---
Subjective Progress Note Date: 09/18/20 Principal diagnosis: stage IA left breast cancer surveillance Stage IA left breast cancer Dick is a 70-year-old white female status post left breast lumpectomy and sentinel node biopsy on . 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 The margins were negative. The patient does have some intermittent left breast sharp pain which occurs laterally and spreads to the nipple, this has improved. She does not know what causes this to happen. It is occurring less frequently. She had radiation therapy in [place]. She is on anastrozole, and doing well with this. The patient did have some asymmetry of the breasts. The right nipple has grade 3 ptosis. She underwent a crescent mastopexy of the right breast on . She has done well with no complications. She does not feel any lumps masses or nodules in either breast. She had a bilateral mammogram done on 09-15-20, it was recommended that she have an untrasound done of the right breast. This was done on 09-15-20 and was benign BIRAD 2, it was recommended she have a repeat mammogram in one year. Family History: 1. patient: melanoma 2. father: skin cancer Hormonal History: menarche: 15 , breast fed: no, age at first 22 menopause: 47 BCP: 8 years hormones: none Surgical history: 1. 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 Parotid resection 3. left breast lumpectomy and SNB 4. mastopexy right breast Medical History: HTN Social history: Smoking: Negative Alcohol: Negative Drugs: Negative ROS: HEENT: none lungs: none heart: none GI: none : none Skin: skin lesions removed,melanoma right arm Musculoskeletal: Negative Psychiatric: Negative Neurologic: Negative Hematologic: Negative ALLERGIES: As per HPI Objective - Vital Signs Vital signs: Vital Signs Temp 98.4 F 09/18/20 11:01 Pulse 75 09/18/20 11:01 Resp 18 09/18/20 11:01 BP 151/83 09/18/20 11:01 Pulse Ox 97 09/18/20 11:01 Intake & Output 09/17/20 09/18/20 09/18/20 18:59 06:59 18:59 Weight 58.06 kg - Exam BMI :22 - Constitutional General appearance: Present: average body habitus - EENT Eyes: Present: EOMI ENT: Present: hearing grossly normal - Neck Neck: Present: normal ROM - Respiratory Respiratory: bilateral: CTA - Cardiovascular Rhythm: regular Heart sounds: normal: S1, S2 - Gastrointestinal General gastrointestinal: Present: normal bowel sounds, soft - Integumentary Integumentary: Present: normal turgor - Musculoskeletal Musculoskeletal: Present: gait normal - Psychiatric Psychiatric: Present: A&O x's 3, appropriate affect - Additional findings Additional findings: breast exam: BRA: 34B inspection: well healed scars bilateral breast Palpation: right breast: Multi-positional exam right breast no dominant masses or nodules of concern, fibrocystic changes Right axilla: No adenopathy of concern Left breast: Well-healed scar from prior surgery, fibrocystic changes, no dominant masses or nodules of concern on multi-positional exam no evidence of recurrent cancer Left axilla: No adenopathy of concern Assessment and Plan Assessment: Impression: 1. No evidence of recurrent left breast cancer stage IA 2. Fibrocystic breast changes 3. Recent bilateral mammogram and right breast ultrasound benign BIRADS 2 Plan 1. Repeat examination in 6 months 2. Repeat bilateral mammogram in 1 year Cc: Dr. Felix encounter 25 minutes > 50% of time in planning and counselling
== END | disposition home or self-care (01) ==
LOC: WWCWWP 10:57
PROVIDERS: ATTEND Surgery
DX: Z53.9 Procedure and treatment not carried out, unspecified reason (principal)

== ENCOUNTER → 2021-04-08 | Outpatient (CLI) | payer MEDICARE, OTHER ==
[2021-04-08 10:41] VITALS: BP 155/80; PULSE 65; RESP 18; TEMP 97.6
--- NOTE | 2021-04-08 10:53 | P.PN ---
Subjective Progress Note Date: 04/08/21 Principal diagnosis: surveillance stage IA left breast cancer stage IA left breast cancer surveillance Dick is a 70-year-old white female status post left breast lumpectomy and sentinel node biopsy on . 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 The margins were negative. The patient does have some intermittent left breast sharp pain which occurs laterally and spreads to the nipple, this has decreased in intensity as well as in occurrence. It is only occasional. It is occurring less frequently. She had radiation therapy in [place]. She is on anastrozole, and doing well with this. The patient did have some asymmetry of the breasts. The right nipple has grade 3 ptosis. She underwent a crescent mastopexy of the right breast on . She has done well with no complications. She does not feel any lumps masses or nodules in either breast. She had a bilateral mammogram done on 09-15-20, it was recommended that she have an untrasound done of the right breast. This was done on 09-15-20 and was benign BIRAD 2, it was recommended she have a repeat mammogram in one year. Family History: 1. patient: melanoma 2. father: skin cancer Hormonal History: menarche: 15 , breast fed: no, age at first 22 menopause: 47 BCP: 8 years hormones: none Surgical history: 1. 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 Parotid resection 3. left breast lumpectomy and SNB 4. mastopexy right breast Medical History: HTN Social history: Smoking: Negative Alcohol: Negative Drugs: Negative ROS: HEENT: none lungs: none heart: none GI: none : none Skin: skin lesions removed,melanoma right arm Musculoskeletal: Negative Psychiatric: Negative Neurologic: Negative Hematologic: Negative ALLERGIES: As per HPI Objective - Constitutional General appearance: Present: cooperative - EENT Eyes: Present: EOMI ENT: Present: hearing grossly normal - Neck Neck: Present: normal ROM - Respiratory Respiratory: bilateral: CTA - Cardiovascular Rhythm: regular Heart sounds: normal: S1, S2 - Integumentary Integumentary: Present: normal turgor - Musculoskeletal Musculoskeletal: Present: gait normal - Psychiatric Psychiatric: Present: A&O x's 3, appropriate affect, intact judgment & insight - Additional findings Additional findings: Breast Exam: BRA: 36B inspection: grade 2 ptosis bilateral Palpation: Right breast: Multi-positional exam fibrocystic changes no dominant masses or nodules of concern Right axilla: No adenopathy of concern Left breast: Multi-positional exam fibrocystic changes no dominant masses or nodules of concern, well-healed scar from prior surgery radiation and postsurgical changes in the upper outer quadrant of the left breast Left axilla: No adenopathy of concern Assessment and Plan Assessment: Impression: 1. No evidence of recurrent left breast cancer stage IA 2. Fibrocystic breast changes 3. bilateral mammogram August BIRADS 2 Plan: 1. Repeat examination in 6 months 2. Repeat bilateral mammogram in August 2021 3. Continue anastrozole CC: Dr. Felix
== END ==
LOC: WWCWWP 10:30
PROVIDERS: ATTEND Surgery
DX: N60.11 Diffuse cystic mastopathy of right breast (principal); N60.12 Diffuse cystic mastopathy of left breast; I10 Essential (primary) hypertension; Z79.811 Long term (current) use of aromatase inhibitors; Z85.820 Personal history of malignant melanoma of skin; Z92.3 Personal history of irradiation; Z88.2 Allergy status to sulfonamides; Z91.048 Other nonmedicinal substance allergy status; Z91.040 Latex allergy status

== ENCOUNTER → 2022-02-22 | Outpatient (CLI) | payer MEDICARE, OTHER ==
--- NOTE | 2022-02-22 11:47 | MM ---
Reason for exam: additional evaluation requested from prior study. Last mammogram was performed 1 year and 5 months ago. History: Patient is postmenopausal, has history of breast cancer at age 69, and has history of other cancer at age 60. Family history of breast cancer in maternal grandmother and breast cancer in mother at age 89. Malignant MG pre op needle loc LT of the left breast, October 02, 2019. Lumpectomy of the left breast, October 02, 2019. Malignant US biopsy breast VAD LT of the left breast, August 23, 2019. Benign core biopsy of the left breast, 2000. Took hormonal contraceptives beginning at age 23. Taking antineoplastic beginning at age 69. Physical Findings: A clinical breast exam by your physician is recommended on an annual basis and results should be correlated with mammographic findings. MG 3D Diag Mammo W/Cad AMBER Bilateral CC and MLO view(s) were taken. Prior study comparison: September 15, 2020, bilateral MG 3d diag mammo w/cad AMBER. September 13, 2019, bilateral MR breast bilat wo/w con. The breast tissue is heterogeneously dense. This may lower the sensitivity of mammography. Finding: Architectural distortion in the upper outer quadrant of the left breast consistent with know post treatment changes. Clips right axilla. Results were given to the patient verbally at the time of the exam. ASSESSMENT: Benign, BI-RAD 2 RECOMMENDATION: Follow-up diagnostic mammogram of both breasts in 1 year.
== END | disposition home or self-care (01) ==
LOC: RADMAMWWP 10:57
PROVIDERS: ATTEND Surgery
DX: R92.8 Other abnormal and inconclusive findings on diagnostic imaging of breast (principal); Z85.3 Personal history of malignant neoplasm of breast; Z78.0 Asymptomatic menopausal state; Z80.3 Family history of malignant neoplasm of breast
CPT/HCPCS: 77066; G0279; 77062

== ENCOUNTER → 2022-04-07 | Outpatient (CLI) | payer MEDICARE, OTHER ==
[2022-04-07 11:52] VITALS: BP 157/90; PULSE 79; RESP 16; TEMP 97.8
--- NOTE | 2022-04-07 12:02 | P.PN ---
Subjective Progress Note Date: 04/07/22 Principal diagnosis: stage IA left breast cancer surveillance stage IA left breast cancer stage IA left breast cancer surveillance Dick is a 71-year-old white female status post left breast lumpectomy and sentinel node biopsy on . 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 The margins were negative. The patient does have some intermittent left breast sharp pain which occurs laterally and spreads to the nipple, this has decreased in intensity and only notes it if there is pressure on the area. She had radiation therapy in [place]. She is on anastrozole, and doing well with this. The patient did have some asymmetry of the breasts. The right nipple has grade 3 ptosis. She underwent a crescent mastopexy of the right breast on . She has done well with no complications. She does not feel any lumps masses or nodules in either breast. She had a bilateral mammogram done on 02-22-22, this was benign BIRAD 2. It was recommended she have a repeat mammogram in one year. Family History: 1. patient: melanoma 2. father: skin cancer Hormonal History: menarche: 15 , breast fed: no, age at first 22 menopause: 47 BCP: 8 years hormones: none Surgical history: 1. 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 Parotid resection 3. left breast lumpectomy and SNB 4. mastopexy right breast Medical History: HTN Social history: Smoking: Negative Alcohol: Negative Drugs: Negative ROS: HEENT: none lungs: none heart: none GI: none : none Skin: skin lesions removed,melanoma right arm Musculoskeletal: Negative Psychiatric: Negative Neurologic: Negative Hematologic: Negative ALLERGIES: As per HPI Objective - Exam BMI: 22.3 - Constitutional General appearance: Present: cooperative - EENT Eyes: Present: EOMI ENT: Present: hearing grossly normal - Neck Neck: Present: normal ROM - Respiratory Respiratory: bilateral: CTA - Cardiovascular Rhythm: regular Heart sounds: normal: S1, S2 - Gastrointestinal General gastrointestinal: Present: soft - Integumentary Integumentary: Present: normal turgor - Musculoskeletal Musculoskeletal: Present: gait normal - Psychiatric Psychiatric: Present: A&O x's 3, appropriate affect, intact judgment & insight - Additional findings Additional findings: Breast Exam: BRA: 36B inspection: Bilateral scars from prior surgery Palpation: Right breast: Multi-positional exam fibrocystic changes no dominant masses or nodules of concern Right axilla: No adenopathy of concern Left breast: Postop changes no dominant masses or nodules of concern Left axilla: No adenopathy of concern Assessment and Plan Assessment: Impression: Left breast invasive ductal carcinoma stage IA no evidence of recurrent disease She is presently on Anestrazole Plan: Follow appearance 6 months Bilateral mammogram in 1 year with physician exam following the mammogram Patient to follow up sooner any questions or concerns The patient may be out of town in 6 months we are aware of this and if she is not available she will follow up as soon as she can. CC: Dr. Keller
== END ==
LOC: WWCWWP 10:55
PROVIDERS: ATTEND Surgery
DX: Z08 Encounter for follow-up examination after completed treatment for malignant neoplasm (principal); Z85.3 Personal history of malignant neoplasm of breast; Z79.811 Long term (current) use of aromatase inhibitors; I10 Essential (primary) hypertension; Z88.5 Allergy status to narcotic agent; Z91.048 Other nonmedicinal substance allergy status; Z91.040 Latex allergy status

== ENCOUNTER → 2023-04-10 | Outpatient (CLI) | payer MEDICARE, OTHER ==
--- NOTE | 2023-04-10 13:53 | MM ---
Reason for Exam: Additional evaluation requested from prior study. Last mammogram was performed 1 year(s) and 2 month(s) ago. Patient History: Menarche at age 16. First Full-Term at age 22. Postmenopausal. Other cancer, age 60. Breast cancer, left, age 69. Hormonal Contraceptives, from age 23 until age 31. 10/02/2019, Lumpectomy on the Left side. 2000, Benign Core Biopsy on the left side. 10/02/2019, Malignant Core Biopsy on the left side. 08/23/2019, Malignant Core Biopsy on the left side. Maternal grandmother had breast cancer. Mother had breast cancer, age 89. Prior Study Comparison: 01/12/2015 Bilateral Screening Mammogram, [facility]. 01/14/2016 Bilateral Diagnostic Mammogram, [facility]. 08/15/2019 Bilateral Diagnostic Mammogram, [facility]. 08/15/2019 Left Diagnostic Ultrasound, [facility]. 08/15/2019 Right Diagnostic Ultrasound, [facility]. 08/23/2019 Left Diagnostic Mammogram, [facility]. 09/13/2019 Bilateral Diagnostic Breast MRI, [facility]. 09/15/2020 Bilateral Diagnostic Mammogram, [facility]. 09/15/2020 Right Diagnostic Ultrasound, [facility]. 02/22/2022 Bilateral Diagnostic Mammogram, [facility]. Tissue Density: The breast tissue is heterogeneously dense. This may lower the sensitivity of mammography. Findings: Analyzed By CAD. Postoperative distortion left breast. No evidence for mass or suspicious clustered microcalcifications. Overall Assessment: Benign, BI-RAD 2 Management: Diagnostic Mammogram of both breasts in 1 year. . Results were given to the patient verbally at the time of exam. Patient should continue monthly self-breast exams. A clinical breast exam by your physician is recommended on an annual basis. This exam should not preclude additional follow-up of suspicious palpable abnormalities. Note on Stormy scores and lifetime risk: 1. A Stormy score greater than 3% is considered moderate risk. If this is the case, consider specialist referral to assess eligibility for a risk reducing agent. 2. If overall lifetime risk for the development of breast cancer is 20% or higher, the patient may qualify for future screening with alternating mammogram and breast MRI. Electronically signed and approved by: Zurdo Harris M.D. Radiologis
== END | disposition home or self-care (01) ==
LOC: RADMAMWWP 12:53
PROVIDERS: ATTEND Surgery
DX: Z85.3 Personal history of malignant neoplasm of breast (principal); Z80.3 Family history of malignant neoplasm of breast; Z78.0 Asymptomatic menopausal state
CPT/HCPCS: 77066; G0279; 77062

== ENCOUNTER → 2023-04-12 | Outpatient (CLI) | payer MEDICARE, OTHER ==
--- NOTE | 2023-04-12 09:56 | P.PN ---
Subjective Progress Note Date: 04/12/23 Principal diagnosis: stage I left breast cancer surveillance stage IA left breast cancer 2018 Dick is a 71-year-old white female status post left breast lumpectomy and sentinel node biopsy on . 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 The margins were negative. The patient does have some intermittent left breast sharp pain which occurs laterally and spreads to the nipple, this has decreased in intensity and only notes it if there is pressure on the area. She had radiation therapy in [place]. She is on anastrozole, and doing well with this. The patient did have some asymmetry of the breasts. The right nipple has grade 3 ptosis. She underwent a crescent mastopexy of the right breast on . She has done well with no complications. She does not feel any lumps masses or nodules in either breast. She had a bilateral mammogram done on 04-10-23, this was benign BIRAD 2. It was recommended she have a repeat mammogram in one year. Family History: 1. patient: melanoma 2. father: skin cancer Hormonal History: menarche: 15 , breast fed: no, age at first 22 menopause: 47 BCP: 8 years hormones: none Surgical history: 1. 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 Parotid resection 3. left breast lumpectomy and SNB 4. mastopexy right breast Medical History: HTN Social history: Smoking: Negative Alcohol: Negative Drugs: Negative ROS: HEENT: none lungs: none heart: none GI: none : none Skin: skin lesions removed,melanoma right arm Musculoskeletal: Negative Psychiatric: Negative Neurologic: Negative Hematologic: Negative ALLERGIES: As per HPI Objective - Constitutional General appearance: Present: cooperative - EENT Eyes: Present: EOMI ENT: Present: hearing grossly normal - Neck Neck: Present: normal ROM - Respiratory Respiratory: bilateral: CTA - Cardiovascular Rhythm: regular Heart sounds: normal: S1, S2 - Gastrointestinal General gastrointestinal: Present: soft - Integumentary Integumentary: Present: normal turgor - Musculoskeletal Musculoskeletal: Present: gait normal - Psychiatric Psychiatric: Present: A&O x's 3, appropriate affect, intact judgment & insight - Additional findings Additional findings: Breast Exam: BRA: 36B inspection: Bilateral scars from prior surgery Palpation: Right breast: Multi-positional exam fibrocystic changes no dominant masses or nodules of concern Right axilla: No adenopathy of concern Left breast: Postop changes no dominant masses or nodules of concern Left axilla: No adenopathy of concern Assessment and Plan Assessment: Impression: Left breast invasive ductal carcinoma stage IA no evidence of recurrent disease She is presently on Anestrazole Plan: Follow up in 6 months Bilateral mammogram in 1 year with physician exam following the mammogram Patient to follow up sooner if any questions or concerns The patient may be out of town in 6 months we are aware of this and if she is not available she will follow up as soon as she can. CC: Dr. Keller
[2023-04-12 10:44] VITALS: BP 170/95; PULSE 71; RESP 16; TEMP 97.8
== END ==
LOC: WWCWWP 09:28
PROVIDERS: ATTEND Surgery
DX: Z85.3 Personal history of malignant neoplasm of breast (principal)

== ENCOUNTER → 2024-04-15 | Outpatient (CLI) | payer MEDICARE, OTHER ==
--- NOTE | 2024-04-15 10:22 | MM ---
Reason for Exam: Additional evaluation requested from prior study. Last screening mammogram was performed 12 month(s) ago. Patient History: Menarche at age 16. First Full-Term at age 22. Postmenopausal. Other cancer, age 60. Breast cancer, left, age 69. Previous chest radiation therapy at age 69. Hormonal Contraceptives, from age 23 until age 31. 10/02/2019, Lumpectomy on the Left side. 2000, Benign Core Biopsy on the left side. 10/02/2019, Malignant Core Biopsy on the left side. 08/23/2019, Malignant Core Biopsy on the left side. Maternal grandmother had breast cancer. Mother had breast cancer, age 89. Prior Study Comparison: 08/01/2013 Bilateral Screening Mammogram, [facility]. 01/12/2015 Bilateral Screening Mammogram, [facility]. 01/14/2016 Bilateral Diagnostic Mammogram, [facility]. 08/15/2019 Bilateral Diagnostic Mammogram, [facility]. 08/15/2019 Left Diagnostic Ultrasound, [facility]. 08/15/2019 Right Diagnostic Ultrasound, [facility]. 08/23/2019 Left Diagnostic Mammogram, [facility]. 09/13/2019 Bilateral Diagnostic Breast MRI, [facility]. 09/15/2020 Bilateral Diagnostic Mammogram, [facility]. 09/15/2020 Right Diagnostic Ultrasound, [facility]. 02/22/2022 Bilateral Diagnostic Mammogram, [facility]. 04/10/2023 Bilateral MG 3D diag mammo w/cad AMBER, [facility]. Tissue Density: The breasts are heterogeneously dense, which may obscure small masses. Findings: Analyzed By CAD. The pattern appears stable. Multiple surgical clips from prior node dissection are in the right axilla. Surgical clips are within the left breast from prior lumpectomy. No significant interval changes are evident. Few scattered punctate calcifications may be within the right breast. No suspicious groups of microcalcifications, spiculated or lobular masses, architectural distortion or other secondary signs of malignancy are mammographically apparent. Overall Assessment: Benign, BI-RAD 2 Management: Diagnostic Mammogram of both breasts in 1 year. A negative mammogram report should not preclude additional follow up of suspicious palpable abnormalities. Patient should continue monthly self breast exam. A clinical breast exam by your physician is recommended on an annual basis and results should be correlated with mammographic findings. Note on Stormy scores and lifetime risk: 1. A Stormy score greater than 3% is considered moderate risk. If this is the case, consider specialist referral to assess eligibility for a risk reducing agent. 2. If overall lifetime risk for the development of breast cancer is 20% or higher, the patient may qualify for future screening with alternating mammogram and breast MRI. Electronically signed and approved by: Carlos Omalley D.O. Radiologis
== END | disposition home or self-care (01) ==
LOC: RADMAMWWP 09:27
PROVIDERS: ATTEND Surgery
DX: Z85.3 Personal history of malignant neoplasm of breast (principal); C50.912 Malignant neoplasm of unspecified site of left female breast
CPT/HCPCS: 77066; G0279; 77062

== ENCOUNTER → 2024-04-29 | Outpatient (CLI) | payer MEDICARE, OTHER ==
[2024-04-29 10:07] VITALS: BP 166/97; PULSE 77; RESP 18; TEMP 98.2
--- NOTE | 2024-04-29 10:12 | P.PN ---
Subjective Progress Note Date: 04/29/24 Principal diagnosis: right breast stage I IDC 2019 stage IA left breast cancer 2019 Dick is a 73-year-old white female status post left breast lumpectomy and sentinel node biopsy on . 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 The margins were negative. The patient does have some intermittent left breast sharp pain which occurs laterally and spreads to the nipple, this has decreased in intensity and only no zoraida it if there is pressure on the area. She had radiation therapy in [place]. She is on anastrozole, and doing well with this. The patient did have some asymmetry of the breasts. The right nipple has grade 3 ptosis. She underwent a crescent mastopexy of the right breast on . She has done well with no complications. She does not feel any lumps masses or nodules in either breast. She had a bilateral mammogram done on 04-15-24, this was benign BIRAD 2. It was recommended she have a repeat mammogram in one year. Family History: 1. patient: melanoma 2. father: skin cancer Hormonal History: menarche: 15 , breast fed: no, age at first 22 menopause: 47 BCP: 8 years hormones: none Surgical history: 1. 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 Parotid resection 3. left breast lumpectomy and SNB 4. mastopexy right breast Medical History: HTN Social history: Smoking: Negative Alcohol: Negative Drugs: Negative ROS: HEENT: none lungs: none heart: none GI: none : none Skin: skin lesions removed,melanoma right arm Musculoskeletal: Negative Psychiatric: Negative Neurologic: Negative Hematologic: Negative ALLERGIES: As per HPI Objective - Constitutional General appearance: Present: cooperative - EENT Eyes: Present: EOMI ENT: Present: hearing grossly normal - Neck Neck: Present: normal ROM - Respiratory Respiratory: bilateral: CTA - Cardiovascular Rhythm: regular Heart sounds: normal: S1, S2 - Integumentary Integumentary: Present: normal turgor - Musculoskeletal Musculoskeletal: Present: gait normal - Psychiatric Psychiatric: Present: A&O x's 3, appropriate affect, intact judgment & insight - Additional findings Additional findings: Breast Exam: BRA: 36B inspection: Bilateral scars from prior surgery Palpation: Right breast: Multi-positional exam fibrocystic changes no dominant masses or nodules of concern Right axilla: No adenopathy of concern Left breast: Postop changes no dominant masses or nodules of concern Left axilla: No adenopathy of concern Assessment and Plan Assessment: Impression: Left breast invasive ductal carcinoma stage IA no evidence of recurrent disease She is presently on Anestrazole Plan: Follow up in 6 months Bilateral mammogram in 1 year with physician exam following the mammogram Patient to follow up sooner if any questions or concerns CC: Dr. Keller
== END ==
LOC: WWCWWP 09:27
PROVIDERS: ATTEND Surgery
DX: C50.912 Malignant neoplasm of unspecified site of left female breast (principal); N64.89 Other specified disorders of breast; Z48.817 Encounter for surgical aftercare following surgery on the skin and subcutaneous tissue; Z92.3 Personal history of irradiation; Z91.048 Other nonmedicinal substance allergy status; Z88.5 Allergy status to narcotic agent; Z91.040 Latex allergy status

== ENCOUNTER → 2025-04-21 | Outpatient (CLI) | payer MEDICARE, OTHER ==
--- NOTE | 2025-04-21 11:10 | MM ---
Reason for Exam: Additional evaluation requested from prior study. Last screening mammogram was performed 12 month(s) ago. Patient History: Menarche at age 16. First Full-Term at age 22. Postmenopausal. Other cancer, age 60. Breast cancer, left, age 69. Previous chest radiation therapy at age 69. Hormonal Contraceptives, from age 23 until age 31. 10/02/2019, Lumpectomy on the Left side. 2000, Benign Core Biopsy on the left side. 10/02/2019, Malignant Core Biopsy on the left side. 08/23/2019, Malignant Core Biopsy on the left side. Maternal grandmother had breast cancer. Mother had breast cancer, age 89. Prior Study Comparison: 01/14/2016 Bilateral Diagnostic Mammogram, [facility]. 08/15/2019 Bilateral Diagnostic Mammogram, [facility]. 08/23/2019 Left Diagnostic Mammogram, [facility]. 09/15/2020 Bilateral Diagnostic Mammogram, [facility]. 02/22/2022 Bilateral Diagnostic Mammogram, [facility]. 04/10/2023 Bilateral MG 3D diag mammo w/cad AMBER, [facility]. 04/15/2024 Bilateral MG 3D diag mammo w/cad AMBER, [facility]. Tissue Density: The breasts are heterogeneously dense, which may obscure small masses. Findings: Analyzed By CAD. Left breast surgical clips. No new suspicious masses, calcifications or distortions. Overall Assessment: Benign, BI-RAD 2 Management: Screening Mammogram of both breasts in 1 year. Results were given to the patient verbally at the time of exam. Patient should continue monthly self-breast exams. A clinical breast exam by your physician is recommended on an annual basis. This exam should not preclude additional follow-up of suspicious palpable abnormalities. Note on Stormy scores and lifetime risk: 1. A Stormy score greater than 3% is considered moderate risk. If this is the case, consider specialist referral to assess eligibility for a risk reducing agent. 2. If overall lifetime risk for the development of breast cancer is 20% or higher, the patient may qualify for future screening with alternating mammogram and breast MRI. [facility], , 04/21/2025 11:05 AM. Electronically signed and approved by: Joshua Kelly DO
== END | disposition home or self-care (01) ==
LOC: RADMAMWWP 10:34
PROVIDERS: ATTEND Surgery
DX: R92.333 Mammographic heterogeneous density, bilateral breasts (principal); Z85.3 Personal history of malignant neoplasm of breast; Z78.0 Asymptomatic menopausal state; Z80.3 Family history of malignant neoplasm of breast; Z92.0 Personal history of contraception
CPT/HCPCS: 77066; G0279; 77062

== ENCOUNTER → 2025-05-23 | Outpatient (CLI) | payer MEDICARE, OTHER ==
[2025-05-23 10:06] VITALS: BP 177/91; PULSE 75; RESP 17; TEMP 98.2
--- NOTE | 2025-05-23 10:14 | P.PN ---
Subjective Progress Note Date: 05/23/25 05-23-25 Principal diagnosis: right breast stage I IDC 2019 stage IA left breast cancer 2019 Dick is a 73-year-old white female status post left breast lumpectomy and sentinel node biopsy on . 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 The margins were negative. The patient does have some intermittent left breast sharp pain which occurs laterally and spreads to the nipple, this has decreased in intensity and only notes it if there is pressure on the area. She had radiation therapy in [place]. She stopped anastrozole 6 months ago, she had completed 5 years of this. The patient did have some asymmetry of the breasts. The right nipple has grade 3 ptosis. She underwent a crescent mastopexy of the right breast on . She has done well with no complications. She does not feel any lumps masses or nodules in either breast. She had a bilateral mammogram done on 04-21-25 this was benign BIRAD 2, and personally reviewed. It was recommended she have a repeat mammogram in one year. Family History: 1. patient: melanoma 2. father: skin cancer Hormonal History: menarche: 15 , breast fed: no, age at first 22 menopause: 47 BCP: 8 years hormones: none Surgical history: 1. 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 Parotid resection 3. left breast lumpectomy and SNB 4. mastopexy right breast Medical History: HTN Social history: Smoking: Negative Alcohol: Negative Drugs: Negative ROS: HEENT: none lungs: none heart: none GI: none : none Skin: skin lesions removed,melanoma right arm Musculoskeletal: Negative Psychiatric: Negative Neurologic: Negative Hematologic: Negative ALLERGIES: As per HPI Objective - Vital Signs Vital signs: Intake & Output 05/22/25 05/23/25 05/23/25 18:59 06:59 18:59 Weight 58.513 kg - Constitutional General appearance: Present: cooperative - EENT Eyes: Present: EOMI ENT: Present: hearing grossly normal - Neck Neck: Present: normal ROM - Respiratory Respiratory: bilateral: CTA - Cardiovascular Rhythm: regular Heart sounds: normal: S1, S2 - Integumentary Integumentary: Present: normal turgor - Musculoskeletal Musculoskeletal: Present: gait normal - Psychiatric Psychiatric: Present: A&O x's 3, appropriate affect, intact judgment & insight - Additional findings Additional findings: Breast Exam: BRA: 36B inspection: Bilateral scars from prior surgery Palpation: Right breast: Multi-positional exam fibrocystic changes no dominant masses or nodules of concern Right axilla: No adenopathy of concern Left breast: Postop changes no dominant masses or nodules of concern Left axilla: No adenopathy of concern Assessment and Plan Assessment: Impression: Left breast invasive ductal carcinoma stage IA no evidence of recurrent disease She stopped anastrazole after 5 years Plan: Bilateral mammogram in 1 year with physician exam following the mammogram Patient to follow up sooner if any questions or concerns CC: Dr. Keller
== END ==
LOC: WWCWWP 09:52
PROVIDERS: ATTEND Surgery
DX: C50.912 Malignant neoplasm of unspecified site of left female breast (principal); Z88.5 Allergy status to narcotic agent; Z91.048 Other nonmedicinal substance allergy status; Z91.040 Latex allergy status